=== PATIENT | female | born 1975 | race Caucasian/White ===

== ENCOUNTER 2019-05-03 16:12 | Emergency (ER) | payer SELFPAY ==
[2019-05-03] MEDS ORDERED: Albuterol/Ipratropium 3.0-0.5 MG/3 ML Neb Soln ONE (16:27)
[2019-05-03] MEDS ORDERED: methylPREDNISolone Sodium Succinate 125 MG/2 ML SDV IM ONE (16:31)
--- NOTE | 2019-05-03 16:31 | EDM.PDOC ---
ED HPI GENERAL MEDICAL PROBLEM - General Chief Complaint: Respiratory Problem Stated Complaint: COUGH, SHORTNESS OF BREATH Time Seen by Provider: 05/03/19 16:31 Source of Information: Reports: Patient History Limitations: Reports: No Limitations - History of Present Illness INITIAL COMMENTS - FREE TEXT/NARRATIVE: HISTORY AND PHYSICAL: History of present illness: Patient is a 44-year-old female presents to the ED with complaint of shortness of breath. She reports history of asthma, [place] [facility] She states she has had cough and shortness of breath x 1 week but worsening since yesterday. She is using rescue inhaler and DuoNeb without little improvement. She denies fevers, chills, nausea, vomiting, abdominal pain , diarrhea, chest pain. Review of systems: As per history of present illness and below otherwise all systems reviewed and negative. Past medical history: As per history of present illness and as reviewed below otherwise noncontributory. Surgical history: As per history of present illness and as reviewed below otherwise noncontributory. Social history: No reported history of drug or alcohol abuse. Family history: As per history of present illness and as reviewed below otherwise noncontributory. Physical exam: General: Patient sitting comfortably in no acute distress and nontoxic appearing HEENT: Atraumatic, normocephalic, pupils reactive, negative for conjunctival pallor or scleral icterus, mucous membranes moist, throat clear, neck supple, nontender, trachea midline. No meningeal signs. Lungs: Clear to auscultation, breath sounds equal bilaterally, chest nontender. Heart: S1S2, regular, negative for clicks, rubs, or overt murmur. Abdomen: Soft, nondistended, nontender. Negative for masses or hepatosplenomegaly. Negative for costovertebral tenderness. No rigidity, rebound , guarding. Pelvis: Stable nontender. Genitourinary: Deferred. Rectal: Deferred. Extremities: Atraumatic, negative for cords or calf pain. Neurovascular unremarkable. Neuro: Awake, alert, oriented. Cranial nerves II through XII unremarkable. Cerebellum unremarkable. Motor and sensory unremarkable throughout. Exam nonfocal. Notes: Diagnostics: CBC, CMP, CXR Therapeutics: DuoNeb Solumedrol 125mg IM Prescriptions: Impression: Asthma exacerbation Plan: Take medication as instructed Follow up with primary care provider Return to ED as needed as discussed Definitive disposition and diagnosis as appropriate pending reevaluation and review of above. - Related Data Allergies Allergy/AdvReac Type Severity Reaction Status Date / Time Sulfa (Sulfonamide Allergy Hives Verified 05/03/19 16:26 Antibiotics) Home Meds: Home Meds DULoxetine [Cymbalta] 20 mg PO BID 05/03/19 [History] Fluticasone Propionate [Flonase] 16 gm .XX ASDIRECTED 05/03/19 [History] Loratadine [Claritin] 5 mg PO ASDIRECTED 05/03/19 [History] Montelukast [Singulair] 4 mg PO DAILY 05/03/19 [History] busPIRone [Buspar] 10 mg PO BID 05/03/19 [History] methylPREDNISolone [Medrol] 4 mg PO ASDIRECTED #1 tab.ds.pk 05/03/19 [Rx] ED ROS GENERAL - Review of Systems Review Of Systems: ROS reveals no pertinent complaints other than HPI. ED EXAM, GENERAL - Physical Exam Exam: See Below (see dictation) Course - Vital Signs Last Recorded V/S: Last Vital Signs Temp 97 F 05/03/19 16:28 Pulse 114 H 05/03/19 16:28 Resp 22 H 05/03/19 16:28 BP 122/80 05/03/19 16:28 Pulse Ox 96 05/03/19 16:28 - Orders/Labs/Meds Labs: Laboratory Tests 05/03/19 05/03/19 Range/Units 17:05 17:05 WBC 7.63 (4.0-11.0) K/uL RBC 3.70 L (4.30-5.90) M/uL Hgb 11.4 L (12.0-16.0) g/dL Hct 34.6 L (36.0-46.0) % MCV 93.5 (80.0-98.0) fL MCH 30.8 (27.0-32.0) pg MCHC 32.9 (31.0-37.0) g/dL RDW Std Deviation 45.6 (28.0-62.0) fl RDW Coeff of Jaye 13 (11.0-15.0) % Plt Count 232 (150-400) K/uL MPV 9.20 (7.40-12.00) fL Neut % (Auto) 63.8 (48.0-80.0) % Lymph % (Auto) 23.7 (16.0-40.0) % [place] % (Auto) 7.1 (0.0-15.0) % Eos % (Auto) 5.0 (0.0-7.0) % Baso % (Auto) 0.4 (0.0-1.5) % Neut # (Auto) 4.9 (1.4-5.7) K/uL Lymph # (Auto) 1.8 (0.6-2.4) K/uL [place] # (Auto) 0.5 (0.0-0.8) K/uL Eos # (Auto) 0.4 (0.0-0.7) K/uL Baso # (Auto) 0.0 (0.0-0.1) K/uL Nucleated RBC % 0.0 /100WBC Nucleated RBCs # 0 K/uL Sodium 142 (136-145) mmol/L Potassium 3.9 (3.5-5.1) mmol/L Chloride 108 H (98-107) mmol/L Carbon Dioxide 24.7 (21.0-32.0) mmol/L BUN 10 (7.0-18.0) mg/dL Creatinine 0.9 (0.6-1.0) mg/dL Est Cr Clr Drug Dosing 63.75 mL/min Estimated GFR (MDRD) > 60.0 ml/min Glucose 113 H (74-106) mg/dL Calcium 9.0 (8.5-10.1) mg/dL Total Bilirubin 0.1 L (0.2-1.0) mg/dL AST 12 L (15-37) IU/L ALT 16 (14-63) IU/L Alkaline Phosphatase 84 (46-116) U/L Total Protein 6.5 (6.4-8.2) g/dL Albumin 3.4 (3.4-5.0) g/dL Globulin 3.1 (2.6-4.0) g/dL Albumin/Globulin Ratio 1.1 (0.9-1.6) Meds: Medications Discontinued Medications Generic Name Dose Route Start Last Admin Trade Name Freq PRN Reason Stop Dose Admin Albuterol/Ipratropium Confirm 05/03/19 16:27 05/03/19 16:32 Duoneb 3.0-0.5 Mg/3 Ml Administered 05/03/19 16:28 3 ml Dose Administration 3 ml .ROUTE .STK-MED ONE Methylprednisolone Sodium Succinate 125 mg 05/03/19 16:31 05/03/19 17:15 Solu-Medrol IM 05/03/19 16:32 125 mg ONETIME ONE Administration Departure - Departure Time of Disposition: 17:40 Disposition: Home, Self-Care 01 Condition: Good Clinical Impression: Asthma exacerbation - Discharge Information Prescriptions: methylPREDNISolone [Medrol] 4 mg PO ASDIRECTED #1 tab.ds.pk Referrals: PCP,None [Primary Care Provider] - Forms: ED Department Discharge Additional Instructions: The following information is given to patients seen in the emergency department who are being discharged to home. This information is to outline your options for follow-up care. We provide all patients seen in our emergency department with a follow-up referral. The need for follow-up, as well as the timing and circumstances, are variable depending upon the specifics of your emergency department visit. If you don't have a primary care physician on staff, we will provide you with a referral. We always advise you to contact your personal physician following an emergency department visit to inform them of the circumstance of the visit and for follow-up with them and/or the need for any referrals to a consulting specialist. The emergency department will also refer you to a specialist when appropriate. This referral assures that you have the opportunity for follow-up care with a specialist. All of these measure are taken in an effort to provide you with optimal care, which includes your follow-up. Under all circumstances we always encourage you to contact your private physician who remains a resource for coordinating your care. When calling for follow-up care, please make the office aware that this follow-up is from your recent emergency room visit. If for any reason you are refused follow-up, please contact the [facility] Emergency Department at and asked to speak to the emergency department charge nurse. [facility] [address] [place] [id number] [place] [address] Take medication as instructed Follow up with primary care provider Return to ED as needed as discussed
[2019-05-03 17:29] LABS: BLOOD UREA NITROGEN,BUN 10 mg/dL (7.0-18.0); CARBON DIOXIDE,CO2 24.7 mmol/L (21.0-32.0); CHLORIDE,CL 108 mmol/L (98-107); GLUCOSE RANDOM 113 mg/dL (74-106); POTASSIUM,K 3.9 mmol/L (3.5-5.1); SODIUM,NA 142 mmol/L (136-145)
--- NOTE | 2019-05-03 17:32 | CR ---
Indication: Shortness of breath. History of asthma. Technique: PA and lateral views the chest were obtained. Comparison: None Findings: The heart is normal in size. The lungs are clear. No infiltrate, pleural effusion, or pneumothorax is identified. Impression: No acute cardiopulmonary process Dictated by Katherine Glynn MD @ May 03 2019 5:29PM Signed by Dr. Katherine Glynn @ May 03 2019 5:29PM
== END 2019-05-03 18:35 | disposition home or self-care (01) ==
LOC: MW.ED 16:12
DX: J45.901 Unspecified asthma with (acute) exacerbation (principal); Z88.2 Allergy status to sulfonamides; Z79.52 Long term (current) use of systemic steroids
CPT/HCPCS: 36415; 71046; 80053; 85025; 94640; 96372; 99285; J2930; J7620-GY

== ENCOUNTER 2019-05-10 21:10 | Emergency (ER) | payer SELFPAY ==
[2019-05-10] MEDS ORDERED: Albuterol/Ipratropium 3.0-0.5 MG/3 ML Neb Soln ONE (21:13)
[2019-05-10] MEDS ORDERED: methylPREDNISolone Sodium Succinate 125 MG/2 ML SDV IM ONE (21:18)
--- NOTE | 2019-05-10 21:23 | EDM.PDOC ---
ED HPI GENERAL MEDICAL PROBLEM - General Chief Complaint: Respiratory Problem Stated Complaint: TROUBLE BREATHING Time Seen by Provider: 05/10/19 21:14 - History of Present Illness INITIAL COMMENTS - FREE TEXT/NARRATIVE: HISTORY AND PHYSICAL: History of present illness: The patient is a 44-year-old female with a known history of asthma who has a rescue inhaler and quit tobacco use about a year and a half ago and presents with recurrence of shortness of breath and wheezing. She was seen here approximately one week ago for same and had labs and a chest x-ray which were normal and she was given a refill on her rescue inhaler and a Medrol Dosepak. The patient says she has a nebulizer machine at home with both albuterol and DuoNeb and she has been using those but she does not feel like she is improving. She says she did improve and finished her steroid pack on Tuesday and then the symptoms recurred over the last few days. She did not follow-up with a provider in the clinic as she is in the process of moving to [place] so she did not feel that she should go to the clinic. She admits she is not very good hydrating but is trying her best and she has no abdominal pain nausea vomiting runny nose ear pain. She did have a slight sore throat but no swollen glands in her neck. She's had no diarrhea and she denies . That she has felt feverish and chilly but she has not had a temperature at home. The patient has not gotten her flu shot yet this year Review of systems: As per history of present illness and below otherwise all systems reviewed and negative. Past medical history: As per history of present illness and as reviewed below otherwise noncontributory. Surgical history: As per history of present illness and as reviewed below otherwise noncontributory. Social history: No reported history of drug or alcohol abuse. Family history: As per history of present illness and as reviewed below otherwise noncontributory. Physical exam: General: Well-developed well-nourished female who is nontoxic and vital signs are noted by me. She is speaking clearly in the ED without breathlessness hoarse or muffled voice HEENT: Atraumatic, normocephalic, pupils reactive, negative for conjunctival pallor or scleral icterus, mucous membranes moist, throat clear of exudates and there is no gross erythema no cervical adenopathy or nuchal rigidity, neck supple, nontender, trachea midline. Lungs: Clear to auscultation with diminished breath sounds throughout but no wheezing or stridor and no work of breathing, breath sounds equal bilaterally, chest nontender. Heart: S1S2, regular rate and rhythm no overt murmurs Abdomen: Soft, nondistended, nontender. NABS Negative for costovertebral tenderness. Pelvis: Deferred Genitourinary: Deferred. Rectal: Deferred. Extremities: Atraumatic, negative for cords or calf pain. Neurovascular unremarkable. No edema Neuro: Awake, alert, oriented. Cranial nerves II through XII unremarkable. Cerebellum unremarkable. Motor and sensory unremarkable throughout. Exam nonfocal. Diagnostics: Chest x-ray influenza swab rapid strep Therapeutics: DuoNeb Solu-Medrol IM spacer and teaching Testing results were discussed with the patient and after the DuoNeb the patient is moving air much better and there is still no wheezing. Discussed giving her a repeat burst of steroids and that she does need follow-up. She has duo nebs and albuterol at home as well as an inhaler. Impression: Asthmatic bronchitis Definitive disposition and diagnosis as appropriate pending reevaluation and review of above. chest area Pain Score (Numeric/FACES): 2 - Related Data Allergies Allergy/AdvReac Type Severity Reaction Status Date / Time Sulfa (Sulfonamide Allergy Hives Verified 05/10/19 21:14 Antibiotics) Home Meds: Home Meds DULoxetine [Cymbalta] 20 mg PO BID 05/03/19 [History] Fluticasone Propionate [Flonase] 16 gm .XX ASDIRECTED 05/03/19 [History] Loratadine [Claritin] 5 mg PO ASDIRECTED 05/03/19 [History] Montelukast [Singulair] 4 mg PO DAILY 05/03/19 [History] busPIRone [Buspar] 10 mg PO BID 05/03/19 [History] methylPREDNISolone [Medrol] 4 mg PO ASDIRECTED #1 tab.ds.pk 05/03/19 [Rx] Past Medical History Respiratory History: Reports: Asthma - Infectious Disease History Infectious Disease History: Reports: None Social & Family History - Family History Family Medical History: Noncontributory - Caffeine Use Caffeine Use: Reports: None ED ROS GENERAL - Review of Systems Review Of Systems: ROS reveals no pertinent complaints other than HPI. ED EXAM, GENERAL - Physical Exam Exam: See Below (see Dictation) Course - Vital Signs Last Recorded V/S: Last Vital Signs Temp 36.4 C 05/10/19 21:10 Pulse 116 H 05/10/19 21:10 Resp 24 H 05/10/19 21:10 BP 133/76 05/10/19 21:10 Pulse Ox 95 05/10/19 21:10 - Orders/Labs/Meds Orders: Active Orders 24 hr Category Date Time Status Communication Order [RC] STAT Care 05/10/19 21:18 Active CULTURE STREP A CONFIRMATION [] Stat Lab 05/10/19 21:30 Results STREP SCRN A RAPID W CULT CONF [] Stat Lab 05/10/19 21:30 Results Meds: Medications Discontinued Medications Generic Name Dose Route Start Last Admin Trade Name Freq PRN Reason Stop Dose Admin Albuterol/Ipratropium Confirm 05/10/19 21:13 Duoneb 3.0-0.5 Mg/3 Ml Administered 05/10/19 21:14 Dose 3 ml .ROUTE .STK-MED ONE Methylprednisolone Sodium Succinate 125 mg 05/10/19 21:18 05/10/19 21:36 Solu-Medrol IM 05/10/19 21:19 125 mg ONETIME ONE Administration Departure - Departure Time of Disposition: 22:06 Disposition: Home, Self-Care 01 Condition: Good Clinical Impression: Asthmatic bronchitis Qualifiers: Asthma severity: mild Asthma persistence: intermittent Asthma complication type : uncomplicated Qualified Code(s): J45.20 - Mild intermittent asthma, uncomplicated - Discharge Information Referrals: PCP,None [Primary Care Provider] - Forms: ED Department Discharge Additional Instructions: The following information is given to patients seen in the emergency department who are being discharged to home. This information is to outline your options for follow-up care. We provide all patients seen in our emergency department with a follow-up referral. The need for follow-up, as well as the timing and circumstances, are variable depending upon the specifics of your emergency department visit. If you don't have a primary care physician on staff, we will provide you with a referral. We always advise you to contact your personal physician following an emergency department visit to inform them of the circumstance of the visit and for follow-up with them and/or the need for any referrals to a consulting specialist. The emergency department will also refer you to a specialist when appropriate. This referral assures that you have the opportunity for followup care with a specialist. All of these measure are taken in an effort to provide you with optimal care, which includes your followup. Under all circumstances we always encourage you to contact your private physician who remains a resource for coordinating your care. When calling for followup care, please make the office aware that this follow-up is from your recent emergency room visit. If for any reason you are refused follow-up, please contact the [facility] emergency department at and ask to speak to the emergency department charge nurse. Primary care- Internal Medicine and Family [address] [address] Push hydration and try to avoid caffeinated products. Use all medications as prescribed and use her rescue inhaler with spacer you have been given today. Please take 1 or 2 puffs from your rescue inhaler every 6 hours or give himself a nebulizer treatment every 6 hours for the next 24 hours and then every 6 hours as needed. Please call and schedule a follow-up appointment here in our clinic using resources given to above or connect with a provider in [place] if you move there in the next few days. Return to ER as needed and as discussed. - My Orders Last 24 Hours: My Active Orders 05/10/19 21:18 Communication Order [RC] STAT 05/10/19 21:30 CULTURE STREP A CONFIRMATION [RM] Stat STREP SCRN A RAPID W CULT CONF [RM] Stat - Assessment/Plan Last 24 Hours: My Active Orders 05/10/19 21:18 Communication Order [RC] STAT 05/10/19 21:30 CULTURE STREP A CONFIRMATION [RM] Stat STREP SCRN A RAPID W CULT CONF [] Stat
--- NOTE | 2019-05-10 21:41 | CR ---
INDICATION: shortness of breath , history asthma TECHNIQUE: Chest radiograph 2 views COMPARISON: 05/03/2019 FINDINGS: Moderate degradation of image quality noted due to body habitus. Mediastinum: The mediastinum is normal in appearance. The heart silhouette is normal in size and morphology. Lung: Both lungs are unremarkable in appearance. No sign of pleural effusion seen. No pneumothorax is identified. Bone and Soft tissue: Unremarkable for age. IMPRESSION: 1. No acute cardiopulmonary disease is seen. Dictated by: Sven Rosas MD @ 05/10/2019 21:40:58 (Electronically Signed)
[2019-05-10] MEDS ORDERED: Albuterol/Ipratropium 3.0-0.5 MG/3 ML Neb Soln NEB ONE (22:08)
== END 2019-05-10 22:20 | disposition home or self-care (01) ==
LOC: MW.ED 21:10
DX: J45.20 Mild intermittent asthma, uncomplicated (principal); Z88.2 Allergy status to sulfonamides; Z79.899 Other long term (current) drug therapy
CPT/HCPCS: 71046; 71046-26; 87081; 87804; 87880-QW; 96372; 99285-25; J2930; J7620-GY